=== PATIENT | male | born 1985 | race African-American/Black ===

== ENCOUNTER 2018-12-03 14:58 | Emergency (ER) | payer SELFPAY ==
[2018-12-03] MEDS ORDERED: NA CHLORIDE 0.9% 1,000 ML ONE ×2 (16:16→18:29)
[2018-12-03 16:17] LABS: Absolute Lymphocytes (CBC) 2.2 K/uL (0.7-4.9); Absolute Monocytes 0.6 K/uL (0.1-1.3); Absolute Neutrophil 8.7 K/uL (1.8-8.0); Eosinophils % 0.4 % (0-4.4); Hematocrit 48.8 % (39.6-49.0); Lymphocytes % 19.1 % (15.3-44.8); MPV 8.6 fL (7.6-11.3); Monocytes % 5.1 % (3.3-12.3); RBC Red Blood Cell Count 5.66 M/uL (4.33-5.43)
[2018-12-03 16:44] LABS: ALT/SGPT 19 U/L (12-78); AST/SGOT 18 U/L (15-37); Albumin 4.3 g/dL (3.4-5.0); Alkaline Phosphatase 78 U/L (45-117); BUN Blood Urea Nitrogen 11 mg/dL (7-18); Bicarbonate 27 mmol/L (21-32); Bilirubin Direct 0.2 mg/dL (0-0.2); Bilirubin Total 0.5 mg/dL (0.2-1.0); Glucose Level 84 mg/dL (74-106); Lipase 146 U/L (73-393); Protein, Total 7.6 g/dL (6.4-8.2); Sodium Level 144 mmol/L (136-145)
[2018-12-03] MEDS ORDERED: ONDANSETRON 4 MG/2 ML VIAL ONE (16:51)
[2018-12-03 17:58] LABS: Urine Blood TRACE (NEG); Urine Glucose NEGATIVE (NEG); Urine Protein 1+ (NEG); Urine pH 7.5 (5.0-7.0)
--- NOTE | 2018-12-03 19:24 | RAD REPORT ---
EXAM DESCRIPTION: CT - Abdomen Pelvis Wo Contrast - 12/03/2018 7:03 pm CLINICAL HISTORY: Abdominal pain with vomiting COMPARISON: None TECHNIQUE: Computed axial tomography of the abdomen and pelvis was obtained. IV was not given as the patient states he is allergic to iodine. Oral contrast was given. Coronal reconstructions performed. All CT scans are performed using dose optimization technique as appropriate and may include automated exposure control or mA/KV adjustment according to patient size. FINDINGS: The evaluation of solid organs and vessels is limited secondary to the lack of contrast a dministration. A innumerable hepatic masses without significant change. They vary in size from a few millimeters to 1 centimeter. Spleen, pancreas, adrenals and kidneys appear grossly normal. The appendix is normal. There is no evidence of diverticulitis. IMPRESSION: No acute abnormality is displayed. Innumerable hepatic masses without change probably represent hamartomas or cysts
--- NOTE | 2018-12-03 19:34 | ER ---
Nurse's Notes [facility] Name: Matthew Conway Jr Age: 33 yrs Sex: Male : 1985 Arrival Date: 12/03/2018 Time: 15:01 Bed 14 Private MD: Diagnosis: Generalized abdominal pain;Vomiting;Diarrhea, unspecified Presentation: 12/03 15:07 Presenting complaint: Patient states: VOMITING, MYALGIA x3 DAYS. Transition of care: bp patient was not received from another setting of care. Onset of symptoms is unknown. Risk Assessment: Do you want to hurt yourself or someone else? Patient reports no desire to harm self or others. Initial Sepsis Screen: Does the patient meet any 2 criteria? No. Patient's initial sepsis screen is negative. Does the patient have a suspected source of infection? No. Patient's initial sepsis screen is negative. Care prior to arrival: None. 15:07 Method Of Arrival: Ambulatory bp 15:07 Acuity: ROSELYN 3 bp Historical: - Allergies: 15:14 No Known Allergies; bp - Home Meds: 15:14 None [Active]; bp - PMHx: 15:14 None; bp - PSHx: 15:14 Hernia repair; bp - Immunization history:: Adult Immunizations up to date. - Social history:: Smoking status: Patient/guardian denies using tobacco. - Ebola Screening: : No symptoms or risks identified at this time. Screenin:20 Abuse screen: Denies threats or abuse. Nutritional screening: No deficits noted. rb1 Tuberculosis screening: No symptoms or risk factors identified. Fall Risk None identified. Assessment: 15:20 General: Appears uncomfortable, Behavior is calm, cooperative, Reports fever for. Pain: rb1 Complains of pain in bodyaches Pain currently is 8 out of 10 on a pain scale. Neuro: Level of Consciousness is awake, alert, obeys commands, Oriented to person, place, time, situation. Cardiovascular: Capillary refill < 3 seconds is brisk in bilateral fingers. Respiratory: Airway is patent Respiratory effort is even, unlabored, Respiratory pattern is regular, symmetrical. GI: Abdomen is flat, Reports nausea, vomiting. : No signs and/or symptoms were reported regarding the genitourinary system. Derm: Skin is dry, Skin is normal, Skin temperature is warm. 16:13 Reassessment: Patient appears in no apparent distress at this time. No changes from rb1 previously documented assessment. 16:42 Reassessment: Patient appears in no apparent distress at this time. Patient and/or rb1 family updated on plan of care and expected duration. Pain level reassessed. Patient is alert, oriented x 3, equal unlabored respirations, skin warm/dry/pink. Pt. is watching TV. 17:00 Reassessment: No vomiting noted at this time, symptoms improved. Pt. reports feeling rb1 better. 17:40 Reassessment: Patient appears in no apparent distress at this time. No changes from rb1 previously documented assessment. Family at bedside. 18:38 Reassessment: Patient appears in no apparent distress at this time. Patient and/or rb1 family updated on plan of care and expected duration. Pain level reassessed. Patient is alert, oriented x 3, equal unlabored respirations, skin warm/dry/pink. 19:00 Reassessment: Patient appears in no apparent distress at this time. Patient and/or jb4 family updated on plan of care and expected duration. Pain level reassessed. Patient is alert, oriented x 3, equal unlabored respirations, skin warm/dry/pink. PT taken to CT. 19:30 Reassessment: Patient appears in no apparent distress at this time. Patient and/or jb4 family updated on plan of care and expected duration. Pain level reassessed. Patient is alert, oriented x 3, equal unlabored respirations, skin warm/dry/pink. Provider at the bed side updating patient on results and plan of care. 19:55 Reassessment: PT waiting for fluids to finish prior to discharge. jb4 20:08 Reassessment: Patient appears in no apparent distress at this time. Patient and/or jb4 family updated on plan of care and expected duration. Pain level reassessed. Patient is alert, oriented x 3, equal unlabored respirations, skin warm/dry/pink. D/c'ed home with significant other. Vital Signs: 15:14 BP 147 / 76; Pulse 50; Resp 17; Temp 97.4; Pulse Ox 97% ; Weight 70.31 kg; Height 6 ft. bp (182.88 cm); 16:09 BP 131 / 90; Pulse 51; Resp 18; Temp 98.1(O); Pulse Ox 98% ; mh5 17:23 BP 124 / 82; Pulse 51; Resp 18; Temp 98.1; Pulse Ox 100% on R/A; mh5 18:26 BP 121 / 79; Pulse 54; Resp 17; Temp 98.5(O); Pulse Ox 100% ; mh5 19:30 BP 140 / 82; Pulse 50; Resp 18; Pulse Ox 100% on R/A; jb4 20:08 BP 145 / 96; Pulse 65; Resp 16; Pulse Ox 100% on R/A; jb4 15:14 Body Mass Index 21.02 (70.31 kg, 182.88 cm) bp ED Course: 15:01 Patient arrived in ED. tw3 15:08 Triage completed. bp 15:14 Arm band placed on. bp 15:16 Miriam Loo, JARVIS is Primary Nurse. rb1 15:20 Richard Ann PA is PHCP. jmm 15:20 Isidro Mora MD is Attending Physician. jmm 15:20 Patient has correct armband on for positive identification. Bed in low position. Call rb1 light in reach. Side rails up X 1. Pulse ox on. NIBP on. 16:10 Inserted saline lock: 22 gauge in right antecubital area, using aseptic technique. rb1 Blood collected. 17:07 Radiology exam delayed due to exam changed to oral contrast only. dropped drink off at mw3 17:10. 18:[address] mw3 19:01 CT completed. Patient tolerated procedure well. Patient moved back from CT. bq 19:05 Abdomen In Process Unspecified. EDMS 19:33 Juan Carlos Aviles MD is Referral Physician. jmm 20:08 No provider procedures requiring assistance completed. IV discontinued, intact, jb4 bleeding controlled, No redness/swelling at site. Administered Medications: 16:10 Drug: NS 0.9% 1000 ml Route: IV; Rate: 1 bolus; Site: right antecubital; rb1 17:22 Follow up: IV Status: Completed infusion rb1 16:41 Drug: Zofran 4 mg Route: IVP; Site: right antecubital; rb1 16:55 Follow up: Response: No adverse reaction; Nausea is decreased rb1 18:25 Drug: NS 0.9% 1000 ml Route: IV; Rate: 1 bolus; Site: right antecubital; rb1 20:00 Follow up: Response: No adverse reaction; IV Status: Completed infusion; IV Intake: jb4 1000ml Intake: 20:00 IV: 1000ml; Total: 1000ml. jb4 Outcome: 19:33 Discharge ordered by . adela 20:08 Discharged to home ambulatory, with significant other. jb4 20:08 Condition: stable 20:08 Discharge instructions given to patient, significant other, Instructed on discharge instructions, follow up and referral plans. medication usage, Demonstrated understanding of instructions, follow-up care, medications, Prescriptions given X 1. 20:10 Patient left the ED. jb4 Signatures: Dispatcher [employer] EDMS Richard Ann PA PA jmm Quilty, Betty bq Barber, Rebecca, RN RN rb1 John Gore RN RN jb4 Earline Cameron [facility] Enma Nguyen 3 Hans Patel, RN RN Tejal Piña 3
--- NOTE | 2018-12-03 19:34 | EDPHYS ---
Physician Documentation [facility] Name: Matthew Conway Jr Age: 33 yrs Sex: Male : 1985 Arrival Date: 12/03/2018 Time: 15:01 Bed 14 Private MD: ED Physician Isidro Mora HPI: 12/03 15:23 This 33 yrs old Black Male presents to ER via Ambulatory with complaints of Vomiting, jmm Abdominal Pain. 15:23 The patient presents to the emergency department with nausea, vomiting, diarrhea, jmm abdominal pain. Onset: The symptoms/episode began/occurred gradually, 3 day(s) ago. Possible causes: unknown. This is a 33 year old male with no chronic medical conditions that presents to the ED with complaints of vomiting, diarrhea, and lower abdominal pain beginning 3 days ago. Denies recent travel. Denies infectious exposure. . Historical: - Allergies: 15:14 No Known Allergies; bp - Home Meds: 15:14 None [Active]; bp - PMHx: 15:14 None; bp - PSHx: 15:14 Hernia repair; bp - Immunization history:: Adult Immunizations up to date. - Social history:: Smoking status: Patient/guardian denies using tobacco. - Ebola Screening: : No symptoms or risks identified at this time. ROS: 15:23 Constitutional: Negative for fever, chills, and weight loss, Cardiovascular: Negative jmm for chest pain, palpitations, and edema, Respiratory: Negative for shortness of breath, cough, wheezing, and pleuritic chest pain. 15:23 Abdomen/GI: Positive for abdominal pain, nausea and vomiting, diarrhea. 15:23 All other systems are negative. Exam: 15:23 Head/Face: atraumatic. Eyes: EOMI, no conjunctival erythema appreciated ENT: Moist jmm Mucus Membranes Neck: Trachea midline, Supple Chest/axilla: Normal chest wall appearance and motion. Cardiovascular: Regular rate and rhythm. No edema appreciated Respiratory: Normal respirations, no respiratory distress appreciated 15:23 Back: Normal ROM Skin: General appearance color normal MS/ Extremity: Moves all extremities, no obvious deformities appreciated, no edema noted to the lower extremities Neuro: Awake and alert, normal gait Psych: Behavior is normal, Mood is normal, Patient is cooperative and pleasant 15:23 Constitutional: The patient appears in no acute distress, alert, awake. 15:23 Abdomen/GI: Inspection: abdomen appears normal, Bowel sounds: normal, Palpation: soft, mild abdominal tenderness, in the right lower quadrant and left lower quadrant. Vital Signs: 15:14 BP 147 / 76; Pulse 50; Resp 17; Temp 97.4; Pulse Ox 97% ; Weight 70.31 kg; Height 6 ft. bp (182.88 cm); 16:09 BP 131 / 90; Pulse 51; Resp 18; Temp 98.1(O); Pulse Ox 98% ; mh5 17:23 BP 124 / 82; Pulse 51; Resp 18; Temp 98.1; Pulse Ox 100% on R/A; mh5 18:26 BP 121 / 79; Pulse 54; Resp 17; Temp 98.5(O); Pulse Ox 100% ; mh5 19:30 BP 140 / 82; Pulse 50; Resp 18; Pulse Ox 100% on R/A; jb4 20:08 BP 145 / 96; Pulse 65; Resp 16; Pulse Ox 100% on R/A; jb4 15:14 Body Mass Index 21.02 (70.31 kg, 182.88 cm) bp MDM: 15:23 Patient medically screened. chanell 19:32 Data reviewed: vital signs, nurses notes. Counseling: I had a detailed discussion with adela the patient and/or guardian regarding: the historical points, exam findings, and any diagnostic results supporting the discharge/admit diagnosis, lab results, radiology results, the need for outpatient follow up, to return to the emergency department if symptoms worsen or persist or if there are any questions or concerns that arise at home. ED course: Patient tolerates PO in the ED. patient advised to follow up with gi for further evaluation of hepatic cysts. patient was otherwise given strict return precautions. patient understood and agrees with the plan of care. . 12/03 15:46 Order name: Basic Metabolic Panel; Complete Time: 16:[address] [facility] 12/03 15:46 Order name: CBC with Diff; Complete Time: 16:[address] [facility] 12/03 15:46 Order name: Creatinine for Radiology; Complete Time: 16:[address] [facility] 12/03 15:46 Order name: Hepatic Function; Complete Time: 16:[address] [facility] 12/03 15:46 Order name: Lipase; Complete Time: 16:[address] [facility] 12/03 17:45 Order name: Urine Dipstick--Ancillary (enter results); Complete Time: 17:59 12/03 15:46 Order name: IV Saline Lock; Complete Time: 16:[address] [facility] 12/03 15:46 Order name: Labs collected and sent; Complete Time: 16:[address] [facility] 12/03 18:57 Order name: Abdomen ; Complete Time: 19:27 EDMS Administered Medications: 16:10 Drug: NS 0.9% 1000 ml Route: IV; Rate: 1 bolus; Site: right antecubital; rb1 17:22 Follow up: IV Status: Completed infusion rb1 16:41 Drug: Zofran 4 mg Route: IVP; Site: right antecubital; rb1 16:55 Follow up: Response: No adverse reaction; Nausea is decreased rb1 18:25 Drug: NS 0.9% 1000 ml Route: IV; Rate: 1 bolus; Site: right antecubital; rb1 20:00 Follow up: Response: No adverse reaction; IV Status: Completed infusion; IV Intake: jb4 1000ml Disposition: 12/04 07:57 Co-signature as Attending Physician, Isidro Mora MD I agree with the assessment and chanell plan of care. Disposition: 12/03/18 19:33 Discharged to Home. Impression: Generalized abdominal pain, Vomiting, Diarrhea, unspecified. - Condition is Stable. - Discharge Instructions: Diarrhea, Adult, Nausea and Vomiting, Adult. - Prescriptions for Zofran ODT 4 mg Oral tablet,disintegrating - place 1 tablet by TRANSLINGUAL route every 4-6 hours; 20 tablet. - Medication Reconciliation Form, Thank You Letter, Antibiotic Education, Prescription Opioid Use, Work release form form. - Follow up: Juan Carlos Aviles MD; When: 2 - 3 days; Reason: Recheck today's complaints, Continuance of care, Re-evaluation by your physician. Signatures: Dispatcher [employer] [facility] Isidro Mora MD MD cha Mickail, Joel, PA PA Miriam Kelsey, RN RN rb1 John Gore, RN RN jb4 Hans Patel, RN RN bp Corrections: (The following items were deleted from the chart) 12/03 18:57 16:24 Abdomen Pelvis W Con+CT.RAD.BRZ ordered. [facility] 20:10 19:33 12/03/2018 19:33 Discharged to Home. Impression: Generalized abdominal pain; jb4 Vomiting; Diarrhea, unspecified. Condition is Stable. Forms are Medication Reconciliation Form, Thank You Letter, Antibiotic Education, Prescription Opioid Use. Follow up: Juan Carlos Aviles; When: 2 - 3 days; Reason: Recheck today's complaints, Continuance of care, Re-evaluation by your physician. adela
[2018-12-03 20:19] VITALS: O2SAT 100
[2018-12-03 20:20] VITALS: TEMP 98.5
[2018-12-03 20:23] VITALS: BP 145/96
== END 2018-12-03 20:10 | disposition home or self-care (01) ==
LOC: ER 14:58
DX: R11.10 Vomiting, unspecified (principal); R19.7 Diarrhea, unspecified
CPT/HCPCS: 36415; 74176; 80048; 80076; 81003; 83690; 85025; 96361; 96374; 99284; J2405; J7030

== ENCOUNTER 2020-03-23 19:32 | Emergency (ER) | payer SELFPAY ==
[2020-03-23 20:04] LABS: Basophils % 0.5 % (0-1.3); Hematocrit 44.1 % (39.6-49.0); Lymphocytes % 23.6 % (15.3-44.8); MPV 8.5 fL (7.6-11.3); RBC Red Blood Cell Count 5.08 M/uL (4.33-5.43)
[2020-03-23] MEDS ORDERED: NA CHLORIDE 0.9% 1,000 ML ONE ×2 (20:08→20:54)
[2020-03-23] MEDS ORDERED: ONDANSETRON 4 MG/2 ML VIAL ONE (20:08)
[2020-03-23 20:11] LABS: Protime INR 1.15
--- NOTE | 2020-03-23 20:27 | RAD REPORT ---
EXAM DESCRIPTION: CT - Head Brain Wo Cont - 03/23/2020 8:04 pm CLINICAL HISTORY: SEIZURE COMPARISON: No comparisons TECHNIQUE: Axial 5 mm thick images of the head were obtained without IV contrast. All CT scans are performed using dose optimization technique as appropriate and may include automated exposure control or mA/KV adjustment according to patient size. FINDINGS: No intracranial hemorrhage, mass, edema or shift of mid-line structures. No acute infarcti on changes seen. No abnormal extra-axial fluid collections. Ventricles are normal. Mastoid air cells and visualized portions of the paranasal sinuses are clear. No acute bony findings. IMPRESSION: Negative non-contrast CT head examination.
[2020-03-23 20:32] LABS: ALT/SGPT 13 U/L (12-78); AST/SGOT 13 U/L (15-37); Albumin 4.1 g/dL (3.4-5.0); Alkaline Phosphatase 71 U/L (45-117); BUN Blood Urea Nitrogen 10 mg/dL (7-18); Bicarbonate 19 mmol/L (21-32); Bilirubin Direct 0.1 mg/dL (0-0.2); Bilirubin Total 0.5 mg/dL (0.2-1.0); Glucose Level 119 mg/dL (74-106); Potassium 3.8 mmol/L (3.5-5.1); Protein, Total 7.4 g/dL (6.4-8.2); Sodium Level 142 mmol/L (136-145)
--- NOTE | 2020-03-23 21:56 | RAD REPORT ---
EXAM DESCRIPTION: RAD - Chest Single View - 03/23/2020 9:51 pm CLINICAL HISTORY: right side rib pain Chest pain. COMPARISON: CHEST SINGLE VIEW dated 01/15/2014 FINDINGS: Portable technique limits examination quality. The lungs are grossly clear. The heart is normal in size. No displaced fractures. IMPRESSION: No acute intrathoracic process suspected.
--- NOTE | 2020-03-23 22:03 | ER ---
Nurse's Notes [facility] Name: Matthew Conway Jr Age: 34 yrs Sex: Male : 1985 Arrival Date: 03/23/2020 Time: 19:37 Bed 5 Private MD: None, None Diagnosis: Seizure;Other chest pain-right lateral rib pain Presentation: 03/23 19:40 Method Of Arrival: EMS: [facility] [place] 19:40 Chief complaint: EMS states: he was at home with his girlfriend when he had a seizure, mg2 fell backwards, has pain on the right shoulder and abdomen, was vomiting, on scene he was post ictal, disoriented. no PMH of seizure. Coronavirus screen: Client denies travel out of the [place] in the last 14 days. Ebola Screen: No symptoms or risks identified at this time. Initial Sepsis Screen: Does the patient meet any 2 criteria? No. Patient's initial sepsis screen is negative. Does the patient have a suspected source of infection? No. Patient's initial sepsis screen is negative. Risk Assessment: Do you want to hurt yourself or someone else?. Onset of symptoms was March 23, 2020. 19:40 Acuity: ROSELYN 3 mg2 Historical: - Allergies: 19:46 No Known Allergies; mg2 - Home Meds: 19:46 None [Active]; mg2 - PMHx: 19:46 None; mg2 - PSHx: 19:46 None; mg2 - Immunization history:: Flu vaccine status is unknown. - Social history:: Smoking status: Patient reports the use of cigarette tobacco products, smokes one-half pack cigarettes per day, Patient uses street drugs, marijuana, Patient/guardian denies using alcohol. Screenin:00 Abuse screen: Denies threats or abuse. Denies injuries from another. Nutritional mg2 screening: No deficits noted. Tuberculosis screening: No symptoms or risk factors identified. Fall Risk IV access (20 points). Assessment: 19:59 General: Appears in no apparent distress. comfortable, Behavior is calm, cooperative. mg2 Pain: Complains of pain in back and chest. Neuro: Level of Consciousness is awake, alert, obeys commands, Oriented to person, place, time, situation. Cardiovascular: Capillary refill < 3 seconds Patient's skin is warm and dry. Respiratory: Airway is patent Respiratory effort is even, unlabored, Respiratory pattern is regular, symmetrical. GI: Pt is actively vomiting coffee ground emesis. : No signs and/or symptoms were reported regarding the genitourinary system. EENT: No signs and/or symptoms were reported regarding the EENT system. Derm: Skin is intact, is healthy with good turgor, Skin is pink, warm \T\ dry. normal. Musculoskeletal: Circulation, motion, and sensation intact. Capillary refill < 3 seconds. 21:40 Reassessment: xray at bedside at this time. sg 22:23 Reassessment: Patient is alert, oriented x 3, equal unlabored respirations, skin bb warm/dry/pink. pt states he is feeling better verbalized understanding of and agrees to plan of care discharge instructions given pt ambulated with steady gait to exit accompanied by family. Vital Signs: 19:40 BP 117 / 79; Pulse 61; Resp 18; Pulse Ox 98% on R/A; Weight 70.31 kg; Height 6 ft. 0 mg2 in. (182.88 cm); 19:59 Temp 97.8(TE); mg2 20:42 BP 135 / 109; Pulse 59; Resp 18; Pulse Ox 100% on R/A; mg2 21:30 BP 132 / 89; Pulse 55 MON; Resp 16 S; Temp 97.8; Pulse Ox 100% on R/A; sg 22:24 BP 136 / 92; Pulse 61; Resp 17 S; Pulse Ox 99% on R/A; bb 19:40 Body Mass Index 21.02 (70.31 kg, 182.88 cm) mg2 ED Course: 19:37 Patient arrived in ED. mg2 19:41 Isidro Mora MD is Attending Physician. chanell 19:42 Bradley Palomo, JARVIS is Primary Nurse. mg2 19:43 [facility] cp 19:45 Triage completed. mg2 19:45 Arm band placed on. mg2 19:50 Inserted saline lock: 20 gauge in right forearm, using aseptic technique. Blood mg2 collected. 19:53 Cecily Conway (aunt) . ar5 20:01 No provider procedures requiring assistance completed. mg2 20:02 Patient has correct armband on for positive identification. shelter monitor on. Pulse mg2 ox on. NIBP on. Door closed. 20:02 Seizure precautions initiated. mg2 20:03 CT Head Brain wo Cont In Process Unspecified. EDMS 20:47 None, None is Private Physician. sg 21:51 XRAY Chest (1 view) In Process Unspecified. EDMS 22:01 Danny Willett MD is Referral Physician. cp 22:25 IV discontinued, intact, bleeding controlled, No redness/swelling at site. Pressure bb dressing applied. Administered Medications: 19:59 Drug: NS 0.9% 1000 ml Route: IV; Rate: 1 bolus; Site: right forearm; mg2 19:59 Drug: Zofran (Ondansetron) 4 mg Route: IVP; Site: right forearm; mg2 20:46 Follow up: Response: No adverse reaction; Nausea is decreased sg 20:45 Drug: NS 0.9% 1000 ml Route: IV; Rate: 1 bolus; Site: right forearm; sg Outcome: 22:03 Discharge ordered by MD. cp 22:24 Patient left the ED. sg 22:25 Discharged to home ambulatory, with family. bb 22:25 Condition: stable 22:25 Discharge instructions given to patient, Instructed on discharge instructions, follow up and referral plans. medication usage, Demonstrated understanding of instructions, follow-up care, medications, Prescriptions given X 1. Signatures: Dispatcher [employer] EDMS Erik Fine RN RN sg Anderson, Corey, MD MD cha Ballard, Brenda RN RN Isidro Fuentes, PA PA cp Bradley Palomo, JARVIS [place] mg2 Alicia Ontiveros ar5 Corrections: (The following items were deleted from the chart) 20:46 20:45 NS 0.9% 1000 ml IV at 1 bolus in right antecubital sg sg
--- NOTE | 2020-03-23 22:03 | EDPHYS ---
Physician Documentation [facility] Name: Matthew Conway Jr Age: 34 yrs Sex: Male : 1985 Arrival Date: 03/23/2020 Time: 19:37 Bed 5 Private MD: None, None ED Physician Isidro Mora HPI: 03/23 19:53 This 34 yrs old Black Male presents to ER via EMS with complaints of Seizure. cp 19:53 The patient presents after having a single isolated seizure, that lasted an unknown cp period of time, the episode(s) was witnessed, by a significant other, girlfriend. Character of seizure(s): Loss of consciousness: the patient experienced loss of consciousness, Incontinence: none. Seizure onset: just prior to arrival. Seizure Hx: the patient has no previous seizure history. 19:53 Current symptoms: Currently, the patient is not experiencing any symptoms, no decreased cp level of consciousness. 19:53 Associated injury: Chest: right lateral chest wall, pain. EMS care: none. cp Historical: - Allergies: 19:46 No Known Allergies; mg2 - Home Meds: 19:46 None [Active]; mg2 - PMHx: 19:46 None; mg2 - PSHx: 19:46 None; mg2 - Immunization history:: Flu vaccine status is unknown. - Social history:: Smoking status: Patient reports the use of cigarette tobacco products, smokes one-half pack cigarettes per day, Patient uses street drugs, marijuana, Patient/guardian denies using alcohol. ROS: 19:55 Constitutional: Negative for body aches, chills, fever, poor PO intake. cp 19:55 Eyes: Negative for injury, pain, redness, and discharge. cp 19:55 ENT: Negative for drainage from ear(s), ear pain, sore throat, difficulty swallowing, difficulty handling secretions. 19:55 Neck: Negative for pain with movement, pain at rest, stiffness. 19:55 Cardiovascular: Positive for pain right lateral rib area. 19:55 Respiratory: Negative for cough, shortness of breath, wheezing. 19:55 Abdomen/GI: Positive for nausea, Negative for diarrhea, constipation, bowel incontinence, active vomiting. 19:55 Back: Positive for pain at rest, of the thoracic area. 19:55 : Negative for bladder incontinence. 19:55 MS/extremity: Negative for injury or acute deformity, decreased range of motion, paresthesias. 19:55 Neuro: Positive for history of seizure, Negative for altered mental status, numbness. 19:55 All other systems are negative. Exam: 20:00 Constitutional: The patient appears in no acute distress, alert, awake, cp non-diaphoretic, non-toxic, well developed, well nourished. 20:00 Head/Face: Normocephalic, atraumatic. cp 20:00 Eyes: Periorbital structures: appear normal, Conjunctiva: normal, no exudate, no injection, Sclera: no appreciated abnormality, Lids and lashes: appear normal. 20:00 ENT: External ear(s): are unremarkable, Nose: is normal, Posterior pharynx: Airway: no evidence of obstruction, patent. 20:00 Neck: ROM/movement: is normal, is supple, without pain, no range of motions limitations, no nuchal rigidity. 20:00 Chest/axilla: Inspection: normal, Palpation: crepitus, is not appreciated, tenderness, that is mild, of the right lateral chest wall. 20:00 Cardiovascular: Rate: tachycardic, Rhythm: regular, Edema: is not appreciated, JVD: is not appreciated. 20:00 Respiratory: the patient does not display signs of respiratory distress, Respirations: normal, no use of accessory muscles, no retractions, labored breathing, is not present, Breath sounds: are clear throughout, no decreased breath sounds, no stridor, no wheezing. 20:00 Abdomen/GI: Inspection: abdomen appears normal, Palpation: abdomen is soft and non-tender, in all quadrants. 20:00 Back: pain, that is very mild, of the thoracic area, ROM is normal. 20:00 Neuro: Orientation: to person, place \T\ time. Mentation: is normal, Motor: moves all fours, strength is normal. 20:00 Musculoskeletal/extremity: Exam is negative for decreased range of motion, deformity, cp injury. 20:15 ECG was reviewed by the Attending Physician. cp Vital Signs: 19:40 BP 117 / 79; Pulse 61; Resp 18; Pulse Ox 98% on R/A; Weight 70.31 kg; Height 6 ft. 0 mg2 in. (182.88 cm); 19:59 Temp 97.8(TE); mg2 20:42 BP 135 / 109; Pulse 59; Resp 18; Pulse Ox 100% on R/A; mg2 21:30 BP 132 / 89; Pulse 55 MON; Resp 16 S; Temp 97.8; Pulse Ox 100% on R/A; sg 22:24 BP 136 / 92; Pulse 61; Resp 17 S; Pulse Ox 99% on R/A; bb 19:40 Body Mass Index 21.02 (70.31 kg, 182.88 cm) mg2 MDM: 19:41 Patient medically screened. chanell 20:00 Differential diagnosis: cerebral vascular accident, drug overdose, cardiac arrhythmia, cp seizure. 22:02 Data reviewed: vital signs, nurses notes, lab test result(s), EKG, radiologic studies, cp CT scan, plain films. 22:02 Test interpretation: by ED physician or midlevel provider: ECG, chest xray negative for cp infiltrates. Counseling: I had a detailed discussion with the patient and/or guardian regarding: the historical points, exam findings, and any diagnostic results supporting the discharge/admit diagnosis, lab results, radiology results, the need for outpatient follow up, a neurologist, to return to the emergency department if symptoms worsen or persist or if there are any questions or concerns that arise at home. ED course: VSS. No seizure activity observed or reported while patient in ED. Will discharge to home for continued monitoring. 03/23 19:41 Order name: Acetaminophen; Complete Time: 20:39 [facility] 03/23 19:41 Order name: Basic Metabolic Panel; Complete Time: 20:39 [facility] 03/23 20:39 Interpretation: Normal except: CL 109; CO2 19; GLUC 119; CRE 1.37; GFR 72. 03/23 19:41 Order name: CBC with Diff; Complete Time: 20:30 [facility] 03/23 19:41 Order name: ETOH Level; Complete Time: 20:39 [facility] 03/23 19:41 Order name: Hepatic Function; Complete Time: 20:39 [facility] 03/23 19:41 Order name: PT-INR; Complete Time: 20:30 [facility] 03/23 20:30 Interpretation: PT 13.5; Reviewed. 03/23 19:41 Order name: Ptt, Activated; Complete Time: 20:30 [facility] 03/23 19:41 Order name: Salicylate; Complete Time: 21:14 [facility] 09/20 21:14 Interpretation: Reviewed. 03/23 19:41 Order name: Urine Drug Screen [facility] 03/23 19:41 Order name: CT Head Brain wo Cont; Complete Time: 20:30 [facility] 03/23 20:39 Interpretation: Report reviewed. 03/23 21:28 Order name: XRAY Chest (1 view); Complete Time: 22:01 03/23 22:01 Interpretation: Report review. 03/23 22:18 Order name: Urine Dipstick--Ancillary (enter results) ar5 03/23 19:41 Order name: EKG; Complete Time: 19:41 [facility] 03/23 19:41 Order name: EKG - Nurse/Tech; Complete Time: 19:46 [facility] 03/23 19:41 Order name: IV Saline Lock; Complete Time: 19:58 [facility] 03/23 19:41 Order name: Labs collected and sent; Complete Time: 19:58 [facility] 03/23 19:41 Order name: Urine Dipstick-Ancillary (obtain specimen); Complete Time: 22:17 [facility] 03/23 19:41 Order name: Seizure Precautions; Complete Time: 19:46 [facility] EC:15 Rate is 52 beats/min. Rhythm is regular. HI interval is normal. QRS interval is normal. QT interval is normal. T waves are Inverted in lead aVR. Interpreted by me. Reviewed by me. Administered Medications: 19:59 Drug: NS 0.9% 1000 ml Route: IV; Rate: 1 bolus; Site: right forearm; mg2 19:59 Drug: Zofran (Ondansetron) 4 mg Route: IVP; Site: right forearm; mg2 20:46 Follow up: Response: No adverse reaction; Nausea is decreased sg 20:45 Drug: NS 0.9% 1000 ml Route: IV; Rate: 1 bolus; Site: right forearm; sg Disposition: 03/24 06:04 Co-signature as Attending Physician, Isidro Mora MD I agree with the assessment and [facility] plan of care. Disposition: 03/23/20 22:03 Discharged to Home. Impression: Seizure, Other chest pain - right lateral rib pain. - Condition is Stable. - Discharge Instructions: Rib Contusion, Seizure, Adult. - Prescriptions for Naprosyn 500 mg Oral Tablet - take 1 tablet by ORAL route 2 times per day take with food; 20 tablet. - Medication Reconciliation Form, Thank You Letter, Antibiotic Education, Prescription Opioid Use form. - Follow up: Danny Willett MD; When: 1 - 2 days; Reason: Recheck today's complaints. - Problem is new. - Symptoms have improved. 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 Follow-up with neurologist Signatures: Dispatcher [employer] Erik Damon RN RN Isidro Ferrera MD MD cha Page, Corey, PA PA cp Gardose, Michele, RN RN mg2 Corrections: (The following items were deleted from the chart) 03/23 19:54 19:53 Associated injury: The patient did not suffer any apparent associated injury, cp cp 22:24 22:03 03/23/2020 22:03 Discharged to Home. Impression: Seizure; Other chest pain - sg right lateral rib pain. Condition is Stable. Forms are Medication Reconciliation Form, Thank You Letter, Antibiotic Education, Prescription Opioid Use. Follow up: Danny Willett; When: 1 - 2 days; Reason: Recheck today's complaints. Problem is new. Symptoms have improved. cp
[2020-03-23 22:18] LABS: Barbiturates NEGATIVE (NEGATIVE); Benzodiazepines NEGATIVE (NEGATIVE); Cocaine NEGATIVE (NEGATIVE); METHAMPHETAM NEGATIVE (NEGATIVE); Methadone NEGATIVE (NEGATIVE); Opiates NEGATIVE (NEGATIVE); Phencyclidine NEGATIVE (NEGATIVE); THC Cannibis POSITIVE (NEGATIVE)
[2020-03-23 22:40] VITALS: TEMP 97.8
[2020-03-23 22:44] VITALS: BP 136/92; O2SAT 99
[2020-03-23 23:03] LABS: Urine Blood 1+ (NEG); Urine Glucose NEGATIVE (NEG); Urine Protein NEGATIVE (NEG); Urine Specific Gravity 1.025 (1.005-1.030)
== END 2020-03-23 22:24 | disposition home or self-care (01) ==
LOC: ER 19:32
DX: R07.89 Other chest pain (principal); F17.210 Nicotine dependence, cigarettes, uncomplicated
CPT/HCPCS: 36415; 70450; 71045; 80048; 80076; 80307; 80320; 80329; 81003; 85025; 85610; 85730; 93005; 96374; 99285; J2405; J7030